=== PATIENT | male | born 1990 | race Two or more races ===

== ENCOUNTER 2020-10-15 14:12 | Outpatient (REF) | payer OTHER, SELFPAY ==
[2020-10-15 16:39] LABS: MANUAL DIFF FLAG NO
[2020-10-15 16:40] LABS: Basophils Percent Auto 0.3 % (0-2); Eosinophils Absolute Auto 0.1 X10*3/uL (0.0-0.4); Eosinophils Percent Auto 2.3 % (0-4); Hematocrit 38.3 % (42-52); Hemoglobin 13.4 g/dl (14.0-18.0); Imm Gran Abs Auto 0.01 X10*3/uL (0.00-0.03); Imm Gran Pct Auto 0.2 % (0.0-0.4); Lymphocytes Absolute Auto 2.2 X10*3/uL (1.2-4.9); Lymphocytes Percent Auto 35.1 % (20-40); Mean Corpuscular Hemoglobin 31.4 pg (27.0-33.0); Mean Corpuscular Volume 89.7 fL (80-98); Mean Platelet Volume 11.1 fL (9.4-12.4); Monocytes Absolute Auto 0.5 X10*3/uL (0.1-1.2); Monocytes Percent Auto 7.9 % (2-11); Neutrophils Absolute Auto 3.4 X10*3/uL (2.0-8.3); Neutrophils Percent Auto 54.2 % (45-73); Platelet Count 219 X10*3/uL (160-400); Red Blood Count 4.27 X10*6/uL (4.60-5.80); Red Cell Distribution Width 12.4 % (11.0-16.0); White Blood Count 6.2 X10*3/uL (4.8-10.8)
[2020-10-15 16:58] LABS: Alanine Aminotransferase 23 U/L (0-40); Anion Gap 12 (12-20); Aspartate Amino Transferase 34 U/L (5-37); Blood Urea Nitrogen 11 mg/dL (9-16); Calcium 9.1 mg/dL (8.4-10.2); Carbon Dioxide 26 mmol/L (22-29); Chloride 105 mmol/L (96-108); Cholesterol 182 mg/dL; Estimated Glomerular Filt Rate > 60; Glucose Fasting 86 mg/dL (60-99); HDL Cholesterol 37 mg/dL; LDL Cholesterol Calculated 121 mg/dl; Sodium 139 mmol/L (135-145); Triglycerides 124 mg/dL
[2020-10-16 08:04] LABS: HBS Num1 0.24 mIU/mL (0-7.99); HBc Num1 0.11 S/CO (0.00-0.79); Hepatitis B Core Antibody Nonreactive (Nonreactive); ~HepC Num1 0.38 S/CO (0.00-0.79); ~Hepatitis B Surface Antibody NONREACTIVE (Nonreactive); ~Hepatitis C Antibody Nonreactive (Nonreactive)
[2020-10-16 08:27] LABS: HBsAGNum1 0.19 S/CO (0.00-0.99); HIV AB/AG Nonreactive (Nonreactive); HIV Num 1 0.05 S/CO (0.00-0.99); Hepatitis B Surface Antigen Negative (Negative)
[2020-10-16 09:48] LABS: CT PCR NOT DETECTED (Not Detect.); NG PCR NOT DETECTED (Not Detect.)
== END 2020-10-15 14:13 | disposition home or self-care (01) ==
LOC: HO.HMGCLDS 14:12
PROVIDERS: PCP Internal Medicine; Visit Provider Internal Medicine
DX: Z00.00 Encounter for general adult medical examination without abnormal findings (principal); L98.9 Disorder of the skin and subcutaneous tissue, unspecified; I10 Essential (primary) hypertension; Z11.3 Encounter for screening for infections with a predominantly sexual mode of transmission; Z11.8 Encounter for screening for other infectious and parasitic diseases; Z11.59 Encounter for screening for other viral diseases; Z11.4 Encounter for screening for human immunodeficiency virus [HIV]; Z13.220 Encounter for screening for lipoid disorders
CPT/HCPCS: 80048; 80061; 84450; 84460; 85025; 86704; 86706; 86803; 87340; 87389; 87491; 87591

== ENCOUNTER → 2020-10-31 09:37 | Outpatient (BNVA) | payer OTHER, SELFPAY | PROVIDERS: PCP Internal Medicine; Referring Provider Internal Medicine; Visit Provider Surgery | DX: Z01.818 Encounter for other preprocedural examination (principal); L98.9 Disorder of the skin and subcutaneous tissue, unspecified | CPT/HCPCS: 99202 ==

== ENCOUNTER 2020-11-20 08:08 | Outpatient (REF) | payer OTHER, SELFPAY ==
[2020-11-20 08:12] VITALS: BMI 36.6
[2020-11-20 08:13] VITALS: BP 136/87; PULSE 90; RESP 16; TEMP 36.4; O2SAT 100
[2020-11-20 08:36] VITALS: BP 121/72; PULSE 84; RESP 16; O2SAT 99
--- NOTE | 2020-11-20 08:37 | W.PM.OPN ---
Operative Note Operative Note Date of Service: 11/20/20 Narrative: Preop diagnosis: Left thigh lesion Postop diagnosis: Left thigh lesion Procedure: Excision of left eye lesion under local anesthesia surgeon: Adalid Lee MD The patient is a 30-year-old male with a lesion on the left thigh. This measured about 3 cm in widest dimentsiion, was elevated with a narrow base. He understood the technique of excision under local anesthesia. He was aware of the risks, benefits, and alternatives. He was brought to the minor procedure room. He was placed in right lateral decubitus position to expose the area of the lesion. This area was prepped and draped. Lidocaine 1% was used for local anesthesia. I made an elliptical incision around the base of this lesion using a blade 15. It was carried down through the full-thickness of skin and part of subcutaneous layer. This entire lesion with margins of normal-appearing skin was completely excised and sent as a specimen. I undermined the edges of the incision on both sides to allow closure without tension. I closed the skin with full-thickness nylon 2 0 interrupted sutures. Dressings were applied. The patient tolerated the procedure well. There were no complications noted. Estimated blood loss about 2 cc. The patient was given wound care instructions and will be seen in the office for removal of sutures.
--- NOTE | 2020-11-20 08:41 | P.BOP_ITS ---
Brief Operative Note Date of Service: 11/20/20 Pre-op diagnosis: skin lesion left thigh Post-op diagnosis: same Procedure: exc of skin lesion left thigh Surgeon: Adalid Lee MD Anesthesia: local Was an Brush And Broom Clipper used for this Procedure?: No Estimated blood loss (mL): 2 Pathology: other (skin lesion) Condition: stable Disposition: other (home)
== END 2020-11-20 08:09 | disposition home or self-care (01) ==
LOC: HO.MS 08:08
PROVIDERS: PCP Internal Medicine; Visit Provider Surgery
PROC: (CPT 11403; principal; 2020-11-20 08:00)
DX: L98.9 Disorder of the skin and subcutaneous tissue, unspecified (principal)
CPT/HCPCS: 11403; 88305; 88341; 88342

== ENCOUNTER 2022-07-31 09:00 | Outpatient (REF) | payer OTHER, SELFPAY | END 2022-07-31 09:01 | disposition home or self-care (01) | LOC: HO.XRAY 09:00 | PROVIDERS: PCP Internal Medicine; Visit Provider Internal Medicine | DX: Z13.89 Encounter for screening for other disorder (principal) ==

== ENCOUNTER 2023-06-18 11:52 | Outpatient (AMB) | payer OTHER, SELFPAY ==
--- NOTE | 2023-06-18 12:00 | MHC.OFFWIV ---
Intake Vital Signs 06/18/23 12:03 Height 6 ft 2 in Weight 103.873 kg BMI 29.4 BP 110/72 Blood Pressure Location Lt brachial Position Sitting Pulse 98 Pulse Source Pulse Oximeter Temp 98.6 F Temp Source Oral Pulse Oximetry (%) 97 Oxygen Delivery Method Room Air Intake Visit Reasons: EP LFT possible ACL tear Intake Note: Pt is here today c/o pain from Lt buttocks down to Lt leg Patient Tobacco Use Status: Former Tobacco user Allergies sertraline Adverse Reaction (Verified 06/18/23 12:03) Agitated Do you need a note to return to daycare/school/sports/work: Yes HPI HPI Comments History of Present Illness Details 33-year-old male history of anxiety presents with concerns atraumatic left-sided knee pain that radiates up into his buttocks and down his leg, patient reports he has a history of an ACL issue and he is worried this might be flaring up he reports he does a lot of walking during a given day. He reports pain has been acutely worsening over the past few days denies blunt trauma. Denies numbness and tingling, fevers, chills. No chest pain, shortness of breath. Denies recent travel, smoking his history, malignancy, history of DVT or PE. No reported hypercoagulable disorders Physical examination with full range of motion to bilateral knees however slight discomfort with range of motion of left knee. Negative varus, varus, anterior, posterior drawer, negative Barber sign. Patient ambulatory with steady gait and slight limp favoring his right side. Normal sensation distally. 2+ anterior tibialis posterior tibialis, popliteal pulses equal bilateral History and physical exam concerning for possible ligamentous or tendon injury versus sprain or strain. Unlikely fracture, dislocation, neurovascular compromise, threat to limb. History and physical exam without edema, no significant risk factors for DVT, on likely DVT or arterial occlusion. Plan Toradol, imaging, ortho referral. Educated patient on diagnosis and treatment plan, answered all question, patient verbalizes understanding. At this time patient will be discharged home, advised to return with new or worsening symptoms. Educated on worrisome signs and symptoms and when to return. At this time I feel comfortable discharge home. Patient in knee immobilizer from home. [facility] Medical History Gassiness Chronic heartburn Anemia Generalized anxiety disorder with panic attacks Skin lesion of left leg Surgical History No pertinent past surgical history Family History Father HTN (hypertension) Mother CVD (cardiovascular disease) Stroke Mental health disorder Brother No problems noted. Brother No problems noted. Sister Mental health disorder Maternal Aunt Mental health disorder Social History Housing: House Alcohol intake: never Patient Tobacco Use Status: Former Tobacco user e-Cigarette/Vaping Use: Never Used Current occupational status: employed Cognitive needs: No Hearing needs: No Vision needs: Yes Review of Systems Const Details: Constitutional : No Weight loss, No Fever, No Chills, No Fatigue, No Malaise ENT/Mouth : No sore throat, No Rhinorrhea Eyes: No Eye Pain, No Swelling, No Redness Cardiovascular : No Chest Pain, No SOB, No Dyspnea on Exertion, No Orthopnea, No Edema, No Palpitations Respiratory : No Cough, No Sputum, No Wheezing Gastrointestinal : No Nausea, No Vomiting, No Diarrhea, No Constipation, No abdominal Pain, No Hematochezia, No Melena Genitourinary : No Dysuria, No Urinary Frequency, No Hematuria, Musculoskeletal : + joint pain, No Myalgias, No Joint Swelling Skin : No Skin Lesions, No rash Neuro : No Weakness, No Numbness, No Dizziness, No Headache Psych : No Anxiety/Panic, No Depression All other systems reviewed and are negative All systems reviewed & are unremarkable except as noted in HPI and below Physical Exam Vital Signs: Last Vital Signs Temp 98.6 F 06/18/23 12:03 Pulse 98 06/18/23 12:03 BP 110/72 06/18/23 12:03 Pulse Ox 97 06/18/23 12:03 Oxygen Delivery Method Room Air 06/18/23 12:03 BMI result Body Mass Index 29.4 vss Appearance: Alert.? Oriented X3.? No acute distress.? Head: Normocephalic, atraumatic, no step-offs or deformities Eyes: Pupils equal, round and reactive to light.? CVS:Pulses normal.?RRR Respiratory: No respiratory distress.?CTA Abdomen: Soft and nontender.? Skin: Skin warm and dry.? Normal skin color.? Normal skin turgor.? Extremities: No lower extremity edema.? No calf ttp. 5/5 strength to bilateral upper and lower extremities full range of motion to bilateral knees however slight discomfort with range of motion of left knee. Negative varus, varus, anterior, posterior drawer, negative Barber sign. Patient ambulatory with steady gait and slight limp favoring his right side. Normal sensation distally. 2+ anterior tibialis posterior tibialis, popliteal pulses equal bilateral Neuro: Oriented X 3.? No motor deficit.? No sensory deficit. CN 2-12 intact Assessment & Plan Assessment & Plan (1) Left knee pain: Code(s): M25.562 - Pain in left knee Plan Take your medications as prescribed. If you were prescribed antibiotics today, it is important that you take your medication to their entirety, do not skip any doses, do not finish them early. Follow-up with your primary care provider this week. Return to the emergency department with new or worsening symptoms. Such as fevers, chills, chest pain, shortness of breath, nausea, vomiting, dizziness, headache, vision changes, lethargy In case of emergency call 911 Orders: Orders XR knee LT 2V Today M25.562 - Pain in left knee AMB Ketorolac Injection Today M25.562 - Pain in left knee Referrals Orthopedics Referral M25.562 - Pain in left knee Orthopedics Referral M25.562 - Pain in left knee Medications: New ketorolac 30 mg IM ONCE 1 mL 0RF M25.562 - Pain in left knee ketorolac 10 mg PO Q8H PRN 15 tabs 0RF pain Coding Level of Care Code Est Pt Level 3 (57761) Diagnoses Left knee pain M25.562
[2023-06-18 12:03] VITALS: BP 110/72; PULSE 98; TEMP 37; O2SAT 97; BMI 29.4
== END 2023-06-18 12:40 | disposition home or self-care (01) ==
PROVIDERS: PCP Internal Medicine; Visit Provider Physician Assistant
DX: M25.562 Pain in left knee (principal)
CPT/HCPCS: 96372; 99213; J1885

== ENCOUNTER 2023-06-26 13:43 | Outpatient (AMB) | payer OTHER, SELFPAY ==
[2023-06-26 13:54] VITALS: BP 112/74; PULSE 97; TEMP 36.7; O2SAT 98; BMI 29.4
--- NOTE | 2023-06-26 13:54 | AM.OFFWIN_ITS ---
Intake Vital Signs 06/26/23 13:54 Height 6 ft 2 in Weight 229 lb BMI 29.4 BP 112/74 Blood Pressure Location Lt brachial Position Sitting Pulse 97 Pulse Source Pulse Oximeter Temp 98.0 F Temp Source Temporal Artery Scan Pulse Oximetry (%) 98 Intake Visit Reasons: EP [place] Note extension for LFT leg issue Intake Note: pt is here for work note due to no pain relief Patient Tobacco Use Status: Former Tobacco user Allergies sertraline Adverse Reaction (Verified 06/26/23 13:54) Agitated Do you need a note to return to daycare/school/sports/work: Yes HPI HPI Comments History of Present Illness Details This is a 33-year-old male who presented to the walk-in clinic today requesting an extension of his work note. Patient was seen at the walk-in clinic on 06/18/2023 for left knee pain that radiates up to his buttock and down into his ankle. The patient was given oral ketorolac as well as orthopedic referral at that time. He states that he does not have an orthopedic appointment until August 04, 2023 and he is still having left knee pain and he is concerned about going back to work. He states the knee pain has slightly improved. He denies any numbness/weakness/paresthesias of his extremities. [facility] Medical History Gassiness Chronic heartburn Anemia Generalized anxiety disorder with panic attacks Skin lesion of left leg Surgical History No pertinent past surgical history Family History Father HTN (hypertension) Mother CVD (cardiovascular disease) Stroke Mental health disorder Brother No problems noted. Brother No problems noted. Sister Mental health disorder Maternal Aunt Mental health disorder Social History Housing: House Alcohol intake: never Patient Tobacco Use Status: Former Tobacco user e-Cigarette/Vaping Use: Never Used Current occupational status: employed Cognitive needs: No Hearing needs: No Vision needs: Yes Review of Systems Const All systems reviewed & are unremarkable except as noted in HPI and below Reports no additional complaints Eyes Reports no additional complaints ENT Reports no additional complaints Card Reports no additional complaints Resp Reports no additional complaints GI Reports no additional complaints Reports no additional complaints Musc Reports no additional complaints Skin/Breast Reports system reviewed and no additional complaints, except as documented Neuro Reports no additional complaints Psych Reports no additional complaints Endo Reports no additional complaints Kenneth/Lymph Reports no additional complaints Aller/Immun Reports no additional complaints Physical Exam Vital Signs: Last Vital Signs Temp 98.0 F 06/26/23 13:54 Pulse 97 06/26/23 13:54 BP 112/74 06/26/23 13:54 Pulse Ox 98 06/26/23 13:54 BMI result Body Mass Index 29.4 vss Const Other: Vital signs reviewed. Constitutional: Non-toxic appearing. No acute distress. Well-developed and well-nourished. HEENT: Normocephalic and atraumatic. Skin: Warm and dry. No rashes or lesions noted. Neck: Full and painless range of motion. No cervical lymphadenopathy. Cardio: Regular rate and rhythm. No murmurs, gallops, or rubs. No lower extremity edema. No JVD. Pulmonary: No respiratory distress. No accessory muscle usage. Gastrointestinal: Soft, nontender, and nondistended in all 4 quadrants. Musculoskeletal: He has full but uncomfortable range of motion of his left knee. There is no evidence of ligamentous instability. He is ambulatory with a steady gait but he does have an antalgic gait favoring his right side. Neuro: Alert and oriented x4. Cranial nerves 2-12 grossly intact. No focal deficits appreciated. Psych: Normal mood and affect. Assessment & Plan Assessment & Plan (1) Left knee pain: Code(s): M25.562 - Pain in left knee Qualifiers: Chronicity: acute Qualified Code(s): M25.562 - Pain in left knee Plan: This is a 33-year-old male who presented to the walk-in clinic requesting extension of his work note for left knee injury/pain. The patient states he has an appointment with the orthopedic on August 04, 2023. I explained to the patient that I can not provide him a work note for the next 1 month especially because his pain is improving. He states that he has already filed paperwork with his employer and he just needs an extension of his work note for the next several days so he can have further evaluation possibly in the emergency room or guarding his left knee pain. The patient's work note was extended another 3 days until June. Was also given a refill of his oral ketorolac as he ran out of this medication. Recommended rest/activity modification, ice to the area, elevation of the extremity, and to continue with acetaminophen/ibuprofen for pain management as long as patient has no medical contraindications. Patient verbalized understanding and is agreeable with the plan. Medications: Refilled ketorolac 10 mg PO Q8H PRN 15 tabs 0RF pain Coding Level of Care Code Est Pt Level 3 (70202) Diagnoses Acute pain of left knee M25.562 Chronicity: acute
== END 2023-06-26 14:33 | disposition home or self-care (01) ==
PROVIDERS: PCP Internal Medicine; Visit Provider Physician Assistant Medical
DX: M25.562 Pain in left knee (principal)
CPT/HCPCS: 99051; 99213

== ENCOUNTER 2023-07-01 16:43 | Emergency (ER) | payer OTHER, SELFPAY ==
--- NOTE | ~2023-07-01 | US_ITS ---
EXAMINATION: US VENOUS ULTRASOUND WITH DOPPLER LOWER EXTREMITY, LEFT CLINICAL INFORMATION: Pain. COMPARISON: None available. TECHNIQUE: Ultrasound of the deep veins is performed from the hip to the calf with compression sonography and color and pulse Doppler assessment. Spectral analysis with color-flow imaging is performed. FINDINGS: There is normal venous compression and respiratory variation and augmented flow. The visualized left common femoral vein, superficial femoral vein, profunda femoral vein, popliteal vein, and the trifurcation region shows no evidence of deep venous thrombosis. There is no significant popliteal fossa cyst. If the patient's symptoms persist, followup ultrasound in 5 days 7 days might be of value to exclude proximal propagation from a non-visualized calf vein. US/US venous duplex LE LT IMPRESSION: No DVT demonstrated in the left lower extremity.
[2023-07-01 17:40] VITALS: BP 122/84; PULSE 86; RESP 18; TEMP 36.9; O2SAT 100; BMI 30.6
--- OUTSIDE RECORDS SUMMARY | 2023-07-01 17:54 | XMS_ITS | Continuity of Care Document ---
Author Name Unknown Organization [facility] Address [address] [place] [id number] Care Team Providers Care Business Practices Supervisor Name Role Phone Not on Staff, PCP Primary Care Physician Unavail able Encounter [facility] [place] Date(s): 06/30/23 - 06/30/[address] [address]- Discharge Disposition: A-D/C Walkout Attending Physician: Not on Staff, Attending MD Admitting Physician: Not on Staff, Admitting MD Referring Physician: Not on Staff, Referring MD Allergies, Adverse Reactions, Alerts No Known Allergies Problem List Condition Confirmation Course Effective Dates Status Health St at[facility] Informant Severe obesity Confirmed Active Vital Signs Most recent to oldest [Reference Range]: 1 Height 188 cm (06/30/23 7:35 PM) Weight 238 kg (06/30/23 7:35 PM) Oxygen Saturation [94-100 %] 100 % (06/30/23 7:35 PM) Pulse Rate [55-90 bpm] 98 bpm *H* (06/30/23 7:35 PM) Body Mass Index [18.5-24.99 kg/m2] 67.34 kg/m2 *>HHI* (06/30/23 7:35 PM) Blood Pressure [90-138/55-84 mm Hg] 133/ 90mm Hg (06/30/23 7:35 PM) Respiratory Rate [16-30 br/min] 20 br/mi n (06/30/23 7:35 PM) Temperature [96.8-100.4 DegF] 98.3 DegF (06/30/23 7:35 PM) Mode of Delivery (Oxygen) Room air (06/30/23 7:35 PM) Blood pressure sites Arm, left (06/30/23 7:35 PM) Temperature Route Oral (06/30/23 7:35 PM) Dry Weight 108 kg (06/30/23 7:35 PM) Patient Care team information Care Team Personnel Name: Not on Staff, PCP Position: S Physician (General Medicine) Member Role: PCP Care Team Related Persons Name: LEONARDO GONZALEZ Address: home [address] [place] [id number]
[2023-07-01 19:12] VITALS: BP 128/79; PULSE 75; RESP 15; TEMP 36.3; O2SAT 98
--- NOTE | 2023-07-01 19:59 | ED.GENADULT ---
HPI - General Adult General Chief complaint: Extremity Injury, Lower Stated complaint: left leg pain Time Seen by Provider: 07/01/23 18:23 Source: patient and RN notes reviewed Mode of arrival: ambulatory Limitations: no limitations History of Present Illness HPI narrative: 33 year old male with a past medical history of anemia and GERD presents to the emergency department with a chief complaint of left leg pain. Pt admits that he was playing basketball last month and has felt pain in his left posterior thigh and left posterior calf the day after playing basketball. This pain has been ongoing for about 1 month. He explains that he is uncomfortable lying on his left side and it is also uncomfortable to sit in a chair. The patient admits that he saw his PCP who prescribed ketorolac with no releif. Pt also admits to utilizing ice and heat without relief. PCP referred pt to orthopedics, he is not able to get in until August 03. Today he admits to worsening pain in the left posterior thigh and posterior calf. Onset (ago): month(s) Location: left and lower extremity Radiation: non-radiation Severity: mild Quality: dull and constant Pain Consistency: intermittent Relieving factors: rest Exacerbating factors: movement Associated symptoms: denies other symptoms Treatments prior to arrival: NSAID, cold therapy and heat therapy Related Data Home Medications Medication Instructions Recorded Confirmed lorazepam 0.5 mg tablet mg PO 06/26/23 Previous Rx's Medication Instructions Recorded buspirone 10 mg tablet 10 mg PO TID #90 tabs 07/03/22 pantoprazole 40 mg tablet,delayed 40 mg PO DAILY #30 tabs 09/07/22 release ketorolac 10 mg tablet 10 mg PO Q8H PRN pain #15 tabs 06/26/23 Allergies Allergy/AdvReac Type Severity Reaction Status Date / Time sertraline AdvReac Agitated Verified 06/26/23 13:54 Review of Systems Constitutional: Constitutional: Reports as per HPI Musculoskeletal: Musculoskeletal: Reports no additional musculoskeletal complaints, Denies back pain and Denies muscle weakness [facility] Past Medical History Medical History Gassiness Chronic heartburn Anemia Generalized anxiety disorder with panic attacks Skin lesion of left leg Surgical History No pertinent past surgical history Family History Family History Father HTN (hypertension) Mother CVD (cardiovascular disease) Stroke Mental health disorder Brother No problems noted. Brother No problems noted. Sister Mental health disorder Maternal Aunt Mental health disorder Social History Social History Housing: House Alcohol intake: never Patient Tobacco Use Status: Former Tobacco user e-Cigarette/Vaping Use: Never Used Advance Directives: No Advance Directives Information Provided: No Current occupational status: employed Cognitive needs: No Hearing needs: No Vision needs: Yes Physical Exam ED Vital Signs: Vital Signs - 24 hr 07/01/23 17:40 07/01/23 19:12 Temperature 98.4 F 97.3 F Pulse Rate 86 75 Respiratory Rate 18 15 Blood Pressure 122/84 128/79 Pulse Oximetry 100 98 Oxygen Delivery Method Room Air BMI result Body Mass Index 30.6 Const General: cooperative, healthy appearing, no acute distress and well developed Extrem Other: MSK: - Solares Test in the left leg + Straight Leg raise in the left leg - Straight Leg raise in the right leg General: Yes full ROM and Yes no calf tenderness Right lower extremity: normal to inspection, full ROM and hip/thigh Details: normal to inspection Left lower extremity: normal to inspection, full ROM and hip/thigh Details: normal to inspection Medical Decision Making Medical Decision Making MDM Narrative: 33-year-old male presents for evaluation of left leg pain. His pain started the day after playing basketball. History exam is most consistent musculoskeletal origin of his pain. He has no muscle weakness, no back pain to suggest radicular cause of his pain. An ultrasound was ordered to rule out DVT which was negative. There are no skin changes or rashes to suggest cellulitis or infectious cause. Discharge the patient with cyclobenzaprine. The patient is not a diabetic, we will still trial a couple of days of dexamethasone to see if helps his pain and he will follow-up with orthopedics Differential Diagnosis Differential Diagnoses: The differential diagnosis associated with the presentation includes Lumbar Radiculopathy Left Calf Muscle Strain Bakers Cyst Sciatica DVT Radiology Impression Discussion of test interpretation with radiology: I have reviewed the radiologist's reading. Radiologist Impression: US shows no evidence of Bakers Cyst or DVT Discharge Plan Discharge Clinical Impression: Left leg pain Patient Disposition: Home, Self-Care Instructions: Leg Pain (ED) Additional Instructions: Your ultrasound did not show any evidence of blood clots or Coffman's cyst. Your pain is most likely musculoskeletal in origin Take cyclobenzaprine up to 3 times daily as needed for muscle pain You may try dexamethasone twice daily for 3 days to decrease inflammation Use warm compresses or ice, whichever is more comfortable Follow-up with orthopedics as planned Prescriptions: No Action pantoprazole 40 mg tablet,delayed release (DR/EC) 40 mg PO DAILY Qty: 30 1RF Rx Instructions: Take 1 hour before a meal buspirone 10 mg tablet 10 mg PO TID Qty: 90 1RF lorazepam 0.5 mg tablet PO ketorolac 10 mg tablet 10 mg PO Q8H PRN (Reason: pain) Qty: 15 0RF
== END 2023-07-01 20:30 | disposition home or self-care (01) ==
PROVIDERS: Emergency Provider Internal Medicine; PCP Internal Medicine
DX: M79.605 Pain in left leg (principal); R60.0 Localized edema
CPT/HCPCS: 93971; 99282; 99284

== ENCOUNTER 2023-07-07 10:48 | Outpatient (AMB) | payer OTHER, SELFPAY ==
--- NOTE | 2023-07-07 10:51 | A.OFFVIS_ITS ---
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 Patient states he was playing basketball a couple months ago and felt pain in his left thigh and calf the day after playing basketball. This pain has been ongoing since he was seen at the ED on 07/01/23. He explains that it is uncomfortable lying on his left side and sitting in a chair. Patient reports that he saw his PCP who prescribed him ketorolac which gives him no relief. Pt also admits to utilizing ice and heat without relief. He states that his pain is worse when putting weight on the left knee. Allergies sertraline Adverse Reaction (Verified 07/07/23 10:54) Agitated HPI USABILITY ENGINEER-Left knee pain/left leg pain/ Confirmed HPI Details 33-year-old male who presents in the off ice today, as a new patient, for an evaluation of left lower extremity pain. The patient presented to the Walk-In clinic on 06/18/2023 status post atraumatic left-sided knee pain that radiates up into his buttocks and down his leg. X-rays of the left knee were obtained. He was given a knee immobilizer. He was also given an out of work note. He was prescribed Ketorolac 10 mg PO Q8H PRN with 15 tablets. The patient returned to the Walk-In clinic on 06/26/2023 where he requested an extension to his out of work note for a few more days and a refill of his Ketorolac prescription. These were supplied to the patient. The patient presented to the ED on 07/01/2023, per the ED note, where he reported he had been playing basketball in 05/2023 and felt pain in his left posterior thigh and left posterior calf the day after playing basketball. He explains that he is uncomfortable lying on his left side and it is also uncomfortable to sit in a chair. An ultrasound was obtained. He was prescribed Dexamethasone 4 mg PO BID. While in the office today the patient reports he was playing basketball a couple of months ago and felt pain in his left thigh and calf the next day. He states this pain has been ongoing since this event occurred. He confirms being seen in the ED on 07/01/2023. He states he is uncomfortable laying on his left side or sitting in a chair. He reports being seen by his PCP who prescribed him Ketorolac which gave him no relief. He confirms the use of ice and heat with no relief. He also reports increased pain when weight is applied to the left lower extremity. COUNTS INCLUDE 234 BEDS AT THE [facility] Medical History Gassiness Chronic heartburn Anemia Generalized anxiety disorder with panic attacks Skin lesion of left leg Surgical History No pertinent past surgical history Family History Father HTN (hypertension) Mother CVD (cardiovascular disease) Stroke Mental health disorder Brother No problems noted. Brother No problems noted. Sister Mental health disorder Maternal Aunt Mental health disorder Social History Housing: House Alcohol intake: never Patient Tobacco Use Status: Former Tobacco user e-Cigarette/Vaping Use: Never Used Current occupational status: employed Cognitive needs: No Hearing needs: No Vision needs: Yes Review of Systems Const All systems reviewed & are unremarkable except as noted in HPI and below Physical Exam Const General: cooperative and no acute distress Orientation/consciousness: patient oriented x3 Resp Effort & Inspection: normal respiratory effort and able to speak in complete sentences Cardio Peripheral pulses: Peripheral pulses 2+ throughout Skin General skin exam: no rashes or lesions noted Neuro General: patient oriented x3 Extrem Other: Left hip: Normal to inspection. No ecchymosis, erythema, or edema. Full hip ROM in all planes. No tenderness to palpation over the greater trochanteric bursa. 5/5 strength with resisted hip flexion, knee extension, abduction, and abduction. Able to perform straight leg raise. NVI. Left knee: Normal to inspection. No ecchymosis, erythema, or joint effusion. No tenderness to palpation to the medial or lateral joint lines. Full knee extension and flexion. Negative Eyal's. Negative anterior drawer. NVI. Patient reports pain in the glute, hamstring, and gastroc area. Assessment & Plan Assessment & Plan (1) Strain of left gastrocnemius muscle or tendon: Code(s): S86.112A - Strain of other muscle(s) and tendon(s) of posterior muscle group at lower leg level, left leg, initial encounter (2) Strain of left hamstring: Code(s): S76.312A - Strain of muscle, fascia and tendon of the posterior muscle group at thigh level, left thigh, initial encounter Qualifiers: Encounter type: initial encounter Qualified Code(s): S76.312A - Strain of muscle, fascia and tendon of the posterior muscle group at thigh level, left thigh, initial encounter Plan Mr. Saleem is a 33-year-old male who presents in the office today, as a new patient, for an evaluation of left lower extremity pain. The patient presented to the Walk-In clinic on 06/18/2023 status post atraumatic left-sided knee pain that radiates up into his buttocks and down his leg. X-rays of the left knee were obtained. He was given a knee immobilizer. He was also given an out of work note. He was prescribed Ketorolac 10 mg PO Q8H PRN with 15 tablets. The patient returned to the Walk-In clinic on 06/26/2023 where he requested an extension to his out of work note for a few more days and a refill of his Ketorolac prescription. These were supplied to the patient. The patient presented to the ED on 07/01/2023, per the ED note, where he reported he had been playing basketball in 05/2023 and felt pain in his left posterior thigh and left posterior calf the day after playing basketball. He explains that he is uncomfortable lying on his left side and it is also uncomfortable to sit in a chair. An ultrasound was obtained. He was prescribed Dexamethasone 4 mg PO BID.. A referral for the patient to attend physical therapy has been placed today. He will remain out of work until his follow up. Follow up will be in 6 weeks, or sooner if needed. Ultrasound of the left lower extremity, obtained on 07/01/2023, revealed: No DVT demonstrated in the left lower extremity. Orders: Orders PT Evaluation and Treatment Today S76.312A - Strain of muscle, fascia and tendon of the posterior muscle group at thigh level, left thigh, initial encounter, S86.112A - Strain of other muscle(s) and tendon(s) of posterior muscle group at lower leg level, left leg, initial encounter Patient Instructions: Scribed by Char Rowley, medical dosimetrist, for Kylie Kaden AUGUSTIN on 07/07/2023 at 10:53 am, EST. Coding Level of Care Code New Pt Level 4 (53318) Diagnoses Strain of left gastrocnemius muscle or tendon S86.112A Strain of left hamstring, initial encounter S76.312A Encounter type: initial encounter
== END 2023-07-07 11:15 | disposition home or self-care (01) ==
PROVIDERS: PCP Internal Medicine; Visit Provider Physician Assistant
DX: S86.112A Strain of other muscle(s) and tendon(s) of posterior muscle group at lower leg level, left leg, initial encounter (principal); S76.312A Strain of muscle, fascia and tendon of the posterior muscle group at thigh level, left thigh, initial encounter
CPT/HCPCS: 99203

== ENCOUNTER → 2023-07-07 10:48 | Outpatient (BNVA) | payer OTHER, SELFPAY | PROVIDERS: PCP Internal Medicine; Visit Provider Physician Assistant | DX: S86.112A Strain of other muscle(s) and tendon(s) of posterior muscle group at lower leg level, left leg, initial encounter (principal); S76.312A Strain of muscle, fascia and tendon of the posterior muscle group at thigh level, left thigh, initial encounter | CPT/HCPCS: 99202 ==

== ENCOUNTER 2023-08-05 13:00 | Outpatient (RCR) | payer OTHER, SELFPAY ==
--- NOTE | 2023-07-14 14:06 | MHC.PT.EP ---
[facility] [place] Office [place] Office [place] Office [address] [phone] F: [phone] F: [phone] F: [phone] F: [phone] Physical Therapy Plan of Care Date of Evaluation: 07/14/23 Date of Surgery: Diagnosis: strain of L hamstring. Assessment: Patient is a 33 year old R handed male who presents with s/s consistent with L hamstring strain, pain. 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 Patient past medical history includes anxiety. Current impairments include pain, balance, flexibility, ROM, strength, activity tolerance and functional mobility. Functional limitations include decreased ability to walk, stand, squat, jog, negotiate stairs, lift, carry, push, pull and participate in recreational activities. Patient is motivated with good rehab potential. Skilled PT will address impairments and functional limitations in order to achieve goals. Frequency and Duration: The patient will be seen 2x/week for 5 weeks Short Term Goals: I with HEP - 2 weeks normal flexibility in L gastroc/soleus and HS - 3 weeks Normal/symmetrical gait mechanics - 3 weeks Correction Goals: Restore PLOF pain free - 5 weeks LEFS 60/80 - 5 weeks pain free weight bearing in L LE - 4 weeks Treatment Plan: Modalities to reduce pain, spasms and effusion. Manual therapy to restore motion and function. Therapeutic exercise to improve strength and flexibility. Neuromuscular re-education for posture and balance. Therapeutic activities to return to functional activities of daily living. Electronically signed by: Clay Jensen, PT Please sign and return to therapist. Thank you for your referral.
--- NOTE | 2024-02-29 14:18 | MHC.PT.DC ---
[facility] [place] [facility] [place] [facility] [place] [facility] [address] [phone] F: [phone] F: [phone] F: [phone] F: [phone] Physical Therapy Discharge Report Diagnosis: strain of L hamstring. Date of Surgery: Date of Evaluation: 07/14/23 Date of Discharge: 09/02/23 Treatments to Date: 3 Cancellations to Date: No Shows to Date: Discharge Status: Patient Elected to Stop Discharge Summary: 08/05/23: peculiar presentation of s/s and coping have made it challenging to know how to best treat and progress, as has spotty attendance. I did educate him on consistency with PT. His s/s seem tough to pin down but his reaction to s/s is significant when he does have it. He amb in clinic today with no limp at one point, and then extremely painful with very low impact intervention. 07/16/23: difficulty knowing if pt is magnifying or has limited coping skills with discomfort. i educated him thoroughly on importance of gentle, pain free stretching. apparently the patient did not grasp this from the first several times i explained this to him pertaining to his stretching HEP. He seemed to grasp this a bit better at the conclusion of the appt. Patient is a 33 year old R handed male who presents with s/s consistent with L hamstring strain, pain. 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 Patient past medical history includes anxiety. Current impairments include pain, balance, flexibility, ROM, strength, activity tolerance and functional mobility. Functional limitations include decreased ability to walk, stand, squat, jog, negotiate stairs, lift, carry, push, pull and participate in recreational activities. Patient is motivated with good rehab potential. Skilled PT will address impairments and functional limitations in order to achieve goals. Electronically signed by: Clay Jensen, PT Please sign and return to therapist. Thank you for your referral.
== END 2024-02-29 14:19 | disposition home or self-care (01) ==
LOC: HO.PTCHIC 13:00
PROVIDERS: PCP Internal Medicine; Visit Provider Physician Assistant
DX: S76.312A Strain of muscle, fascia and tendon of the posterior muscle group at thigh level, left thigh, initial encounter (principal); S86.112A Strain of other muscle(s) and tendon(s) of posterior muscle group at lower leg level, left leg, initial encounter
CPT/HCPCS: 97110; 97161

== ENCOUNTER 2023-08-10 10:32 | Outpatient (AMB) | payer OTHER, SELFPAY ==
--- NOTE | 2023-08-10 10:35 | MHC.OFFVIS ---
Intake Vital Signs 08/10/23 10:41 Height 6 ft 2 in Weight 238 lb BMI 30.6 Intake Visit Reasons: OV - LT Knee pain, PT aggravated pain, per TM Intake Note: Jens is a 33 year old male who presents today as a patient for a follow up of his strain of left gastrocnemius muscle/tendon. Patient states his pain is getting a bit worse and his pain is radiating up to his buttocks. He states that P.T. is making his pain worse. Pain is taking over is whole leg which is limiting him to do his daily activates. Allergies sertraline Adverse Reaction (Verified 08/10/23 10:39) Agitated HPI OV - LT Knee pain, PT aggravated pain, per TM HPI Details 33-year-old male who presents in the office today for a follow up of left knee pain. I last saw the patient in the office on 07/07/2023 when he was referred to physical therapy and he was to remain out of work until his follow up. While in the office today the patient reports his pain is a bit worse and it radiates up to his buttocks. He confirms attending physical therapy but states this also made his pain worse. He reports pain through out the left lower extremity and states it is limiting him from doing his daily activities. [facility] Medical History Gassiness Chronic heartburn Anemia Generalized anxiety disorder with panic attacks Skin lesion of left leg Surgical History No pertinent past surgical history Family History Father HTN (hypertension) Mother CVD (cardiovascular disease) Stroke Mental health disorder Brother No problems noted. Brother No problems noted. Sister Mental health disorder Maternal Aunt Mental health disorder Social History (Updated 08/10/23 @ 10:40 by Clemente Mi) Housing: House Alcohol intake: never Patient Tobacco Use Status: Former Tobacco user e-Cigarette/Vaping Use: Never Used Current occupational status: employed Current occupation: Mental Health Counselor Cognitive needs: No Hearing needs: No Vision needs: Yes Review of Systems Const All systems reviewed & are unremarkable except as noted in HPI and below Physical Exam Vital Signs: BMI result Body Mass Index 30.6 Const General: cooperative, healthy appearing and no acute distress Orientation/consciousness: patient oriented x3 Resp Effort & Inspection: normal respiratory effort and able to speak in complete sentences Cardio Rate: regular rate Peripheral pulses: Peripheral pulses 2+ throughout GI Palpation (GI): Soft to palpation Skin General skin exam: no rashes or lesions noted Lesions: no lesions Rashes: no rashes Neuro General: patient oriented x3 Extrem Other: Left hip: Normal to inspection. No ecchymosis, erythema, or edema. Full hip ROM in all planes. No tenderness to palpation over the greater trochanteric bursa. 5/5 strength with resisted hip flexion, knee extension, abduction, and abduction. Pain radiating from buttock to calf with straight leg raise. NVI. Left knee: Normal to inspection. No ecchymosis, erythema, or joint effusion. No tenderness to palpation to the medial or lateral joint lines. Full knee extension and flexion. Negative Eyal's. Negative anterior drawer. NVI. Patient reports pain in the glute, hamstring, and gastroc area. Assessment & Plan Assessment & Plan (1) Lumbar radiculopathy: Code(s): M54.16 - Radiculopathy, lumbar region Plan Mr. Saleem is a 33-year-old male who presents in the office today for a follow up of left knee pain. I last saw the patient in the office on 07/07/2023 when he was referred to physical therapy and he was to remain out of work until his follow up. While in the office today the patient reports his pain is a bit worse and it radiates up to his buttocks. He confirms attending physical therapy but states this also made his pain worse. He reports pain through out the left lower extremity and states it is limiting him from doing his daily activities. Patient reports that physical therapy has exacerbated his symptoms and reports that his pain begins in the buttocks region and radiates down to the ankle. He denies any numbness and tingling. At this time, I recommend that he stop attending physical therapy until he is evaluated by Physiatry. I recommend for the patient to use an anti-inflammatory or Tylenol for pain relief. He is also able to apply ice and heat alternating on his lower back. Follow up with be with Physiatry, or sooner if needed. Patient Instructions: Scribed by Char Rowley medical biller, for Kylie Alfonso PA-C on 08/10/2023 at 10:38 am, EST. Coding Level of Care Code Est Pt Level 3 (84924) Diagnoses Lumbar radiculopathy M54.16
[2023-08-10 10:41] VITALS: BMI 30.6
== END 2023-08-10 10:59 | disposition home or self-care (01) ==
PROVIDERS: PCP Internal Medicine; Visit Provider Physician Assistant
DX: M54.16 Radiculopathy, lumbar region (principal)
CPT/HCPCS: 99213

== ENCOUNTER → 2023-08-10 10:32 | Outpatient (BNVA) | payer OTHER, SELFPAY | PROVIDERS: PCP Internal Medicine; Visit Provider Physician Assistant | DX: M54.16 Radiculopathy, lumbar region (principal) | CPT/HCPCS: 99212 ==

== ENCOUNTER 2023-08-25 11:22 | Outpatient (REF) | payer OTHER, SELFPAY ==
--- NOTE | ~2023-08-25 | XR_ITS ---
EXAMINATION: XR LUMBOSACRAL SPINE CLINICAL INFORMATION: Dorsalgia. COMPARISON: Radiographs dated 09/15/2019. TECHNIQUE: AP and lateral views of the lumbar spine and lateral view of the lumbosacral junction. FINDINGS: Vertebral body heights are normal. There is a mild lumbar rotatory levoscoliosis. The lower thoracic and lumbar disc spaces are well-maintained. No acute fracture or spondylolisthesis is seen. There is anterior arthropathy of the T12 upper and lower endplates. There is mild blunting of the anterior margin of the L4 upper endplate. The posterior elements are intact. The paravertebral soft tissues are unremarkable. XR/XR lumbar spine 2-3V IMPRESSION: 1. There is a mild lumbar rotatory levoscoliosis. 2. The lower thoracic and lumbar disc spaces are well-maintained. 3. There are T12 and L4 endplate degenerative changes.
--- NOTE | ~2023-08-25 | XR_ITS ---
EXAMINATION: X-ray bilateral hips CLINICAL INFORMATION: Pain COMPARISON: None TECHNIQUE: 2 views. Left hip 2 views. FINDINGS: Right hip: No acute fracture or dislocation. Joint space is maintained. No abnormal soft tissue calcification. No suspicious soft tissue findings. Left hip: No acute fracture or dislocation. Joint space is maintained. Question lateral acetabular subchondral cysts. No abnormal soft tissue calcification. No suspicious soft tissue findings. XR/XR hip LT min 2V IMPRESSION: No evidence of acute osseous abnormality. Possible mild degenerative changes in the left hip lateral acetabulum.
--- NOTE | ~2023-08-25 | XR_ITS ---
EXAMINATION: X-ray bilateral hips CLINICAL INFORMATION: Pain COMPARISON: None TECHNIQUE: 2 views. Left hip 2 views. FINDINGS: Right hip: No acute fracture or dislocation. Joint space is maintained. No abnormal soft tissue calcification. No suspicious soft tissue findings. Left hip: No acute fracture or dislocation. Joint space is maintained. Question lateral acetabular subchondral cysts. No abnormal soft tissue calcification. No suspicious soft tissue findings. XR/XR hip RT min 2V IMPRESSION: No evidence of acute osseous abnormality. Possible mild degenerative changes in the left hip lateral acetabulum.
== END 2023-08-25 11:23 | disposition home or self-care (01) ==
LOC: HO.HOSX 11:22
PROVIDERS: PCP Internal Medicine; Visit Provider Physical Medicine & Rehabilitation
DX: M54.9 Dorsalgia, unspecified (principal); M54.16 Radiculopathy, lumbar region; M25.552 Pain in left hip; M25.551 Pain in right hip; M79.18 Myalgia, other site
CPT/HCPCS: 72100; 73502; 99202; 99212

== ENCOUNTER 2023-08-25 11:22 | Outpatient (AMB) | payer OTHER, SELFPAY ==
--- NOTE | 2023-08-25 11:32 | MHC.OFFVIS ---
Intake Vital Signs 08/25/23 11:37 Height 6 ft 2 in Weight 238 lb BMI 30.6 Intake Visit Reasons: New Prob - Radiculopathy Intake Note: Jens is a 33 year old male who presents today as a patient for a follow up of his left lumbar radiculopathy. Patient states that his pain has gotten a bit better when he stopped going to PT. He found relief when he takes Tylenol and when he gets a massage. Allergies sertraline Adverse Reaction (Verified 08/10/23 10:39) Agitated Medication List - Last Reconciled 08/25/23 by Kaycee Guallpa MD buspirone 10 mg PO TID lorazepam mg PO HPI HPI Comments History of Present Illness Details Found him lying on exam table, on right side, left side is painful per patient and that position is more comfortable. 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 Walked it off. Sat down with some relief. 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 In May, there was a time he could not get up/walk from car. Eventually improved but walking always caused pain. Denies numbness. Denies weakness. Had some bowel difficulties due to pain. Denies incontinence. Treatment done so far: physical therapy - was painful, made it worse per patients muscle relaxer No imaging. [facility] Medical History Gassiness Chronic heartburn Anemia Generalized anxiety disorder with panic attacks Skin lesion of left leg Surgical History No pertinent past surgical history Family History Father HTN (hypertension) Mother CVD (cardiovascular disease) Stroke Mental health disorder Brother No problems noted. Brother No problems noted. Sister Mental health disorder Maternal Aunt Mental health disorder Social History (Updated 08/10/23 @ 10:40 by Clemente Mi) Housing: House Alcohol intake: never Patient Tobacco Use Status: Former Tobacco user e-Cigarette/Vaping Use: Never Used Current occupational status: employed Current occupation: Mental Health Counselor Cognitive needs: No Hearing needs: No Vision needs: Yes Review of Systems Const All systems reviewed & are unremarkable except as noted in HPI and below Physical Exam Vital Signs: BMI result Body Mass Index 30.6 Constitutional: Patient appears to be in no acute distress, well nourished and well developed. Patient was appropriately conversant and oriented. Good historian. MSK: No specific abnormalities found on inspection of the spine and all extremities. No pain with palpation over the lumbar area. SI joint nontender. GT nontender. ITB nontender. Indicates tenderness is along hamstrings. No signs of tear or redness or inflammation. Lumbar ROM was full. Bilateral hip, knee and ankle ROM WNL. No ligamentous laxity or crepitance. No increased effusion. Straight-leg raising test negative. FABERE test positive left buttocks pain. Gillet test is negative. Anu test is negative. Piriformis test is negative. Strength is 5/5 in all muscle groups tested. No increased tone noted. Neurological: Neurologic examination of the upper and lower extremities was nonfocal with intact sensation, muscle stretch reflexes and without focal motor deficits . Mcneil?s negative bilaterally. Babinski was down going bilaterally. Clonus was negative. Gait is non-antalgic without loss of balance. Assessment & Plan Assessment & Plan (1) Lumbar radiculopathy: Code(s): M54.16 - Radiculopathy, lumbar region (2) Left buttock pain: Code(s): M79.18 - Myalgia, other site (3) Hip pain, left: Code(s): M25.552 - Pain in left hip Plan Pain on left buttocks and posterior thigh. Tender along hamstrings which raises suspicion for hamstring tightness. No signs of tear. Positive SLR though raises concern for radiculitis. He's not had any imaging at all. Will do lumbar and hip xrays today. Start ibuprofen 800mg TID for 7 days. Take full stomach. Discussed side effects. He has been off work. Requesting work letter to be off work. May be reasonable while we do more work up. Assessment and plan discussed with patient, and patient was agreeable. All questions were answered thoroughly. Follow-up 4 weeks. Kaycee Guallpa MD, MARILEE Board Certified, [place] Board [employer] and Rehabilitation (ABPMR) Board Certified, [place] Board [employer] Electro[employer] (ABEM) Orders: Orders XR lumbar spine 2-3V Today M25.552 - Pain in left hip, M54.16 - Radiculopathy, lumbar region, M54.9 - Dorsalgia, unspecified, M79.18 - Myalgia, other site XR hip RT min 2V Today M25.552 - Pain in left hip, M54.16 - Radiculopathy, lumbar region, M79.18 - Myalgia, other site XR hip LT min 2V Today M25.552 - Pain in left hip, M54.16 - Radiculopathy, lumbar region, M79.18 - Myalgia, other site Medications: New ibuprofen 800mg every 8 hours for 7 days, with full stomach 800 mg PO Q8H 21 tabs 1RF Coding Level of Care Code New Pt Level 4 (36698) Diagnoses Lumbar radiculopathy M54.16 Left buttock pain M79.18 Hip pain, left M25.552
[2023-08-25 11:37] VITALS: BMI 30.6
== END 2023-08-25 12:09 | disposition home or self-care (01) ==
PROVIDERS: PCP Internal Medicine; Visit Provider Physical Medicine & Rehabilitation
DX: M54.16 Radiculopathy, lumbar region (principal); M79.18 Myalgia, other site; M25.552 Pain in left hip
CPT/HCPCS: 99204

== ENCOUNTER 2023-09-23 09:56 | Outpatient (AMB) | payer OTHER, SELFPAY ==
--- NOTE | 2023-09-23 10:02 | MHC.OFFVIS ---
Vital Signs 09/23/23 10:09 Height 6 ft 2 in Weight 235 lb BMI 30.2 Intake Visit Reasons: FQ-[id number]-[id number] up Intake Note: Jens is a 33 year old male who presents today for his 4 week follow up of his left lumbar radiculopathy. He reports his back is improving with a pain scale of 5/10 and he has been able to walk 0.5 miles daily which he was unable to do before. He expresses he was told his back pain was radiating down and causing his leg pain. He has his fiance massage his leg for relief. He states his biggest concern is if walking prolonged distances will cause his pain to return. Allergies sertraline Adverse Reaction (Verified 09/23/23 10:07) Agitated Medication List - Last Reconciled 09/23/23 by Kaycee Guallpa MD buspirone 10 mg PO TID ibuprofen 800 mg PO Q8H lorazepam mg PO HPI Comments Details: Injury 05/10/23, works as therapist, playing basketball with patients, as he landed on left foot, sudden pain on left buttocks/thigh. Walked it off. Sat down with some relief. 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 In May, there was a time he could not get up/walk from car. Eventually improved but walking always caused pain. Denies numbness. Denies weakness. Had some bowel difficulties due to pain. Denies incontinence. Treatment done so far: physical therapy - was painful, made it worse per patient muscle relaxer Still points to left hamstrings and calf as source of pain. He says he's overall better. Massages help. He did home exercises that we talked about. Walks 0.5 miles every other day. No groin piain. No low back pain. No numbness. [facility] Medical History Gassiness Chronic heartburn Anemia Generalized anxiety disorder with panic attacks Skin lesion of left leg Surgical History No pertinent past surgical history Family History Father HTN (hypertension) Mother CVD (cardiovascular disease) Stroke Mental health disorder Brother No problems noted. Brother No problems noted. Sister Mental health disorder Maternal Aunt Mental health disorder Social History Housing: House Alcohol intake: never Patient Tobacco Use Status: Former Tobacco user e-Cigarette/Vaping Use: Never Used Current occupational status: employed Current occupation: Mental Health Counselor Cognitive needs: No Hearing needs: No Vision needs: Yes Physical Exam Vital Signs: BMI result Body Mass Index 30.2 Constitutional: Patient appears to be in no acute distress, well nourished and well developed. Patient was appropriately conversant and oriented. Good historian. MSK: No specific abnormalities found on inspection of the spine and all extremities. No pain with palpation over the lumbar area. SI joint nontender. GT nontender. ITB nontender. Indicates tenderness is along hamstrings - no tenderness today. No signs of tear or redness or inflammation. Lumbar ROM was full. Bilateral hip, knee and ankle ROM WNL. No ligamentous laxity or crepitance. No increased effusion. Straight-leg raising test negative. FABERE test negative. Strength is 5/5 in all muscle groups tested. No increased tone noted. Neurological: Neurologic examination of the upper and lower extremities was nonfocal with intact sensation, muscle stretch reflexes and without focal motor deficits . Babinski was down going bilaterally. Clonus was negative. Gait is non-antalgic without loss of balance. Results Reviewed Results Reviewed: Ordering Physician: Kaycee Coy Date of Service: 08/25/23 Procedure(s): XR lumbar spine 2-3V Accession Number(s): [id number] cc: Omaira Romo MD; Kaycee Coy~ EXAMINATION: XR LUMBOSACRAL SPINE CLINICAL INFORMATION: Dorsalgia. COMPARISON: Radiographs dated 09/15/2019. TECHNIQUE: AP and lateral views of the lumbar spine and lateral view of the lumbosacral junction. FINDINGS: Vertebral body heights are normal. There is a mild lumbar rotatory levoscoliosis. The lower thoracic and lumbar disc spaces are well-maintained. No acute fracture or spondylolisthesis is seen. There is anterior arthropathy of the T12 upper and lower endplates. There is mild blunting of the anterior margin of the L4 upper endplate. The posterior elements are intact. The paravertebral soft tissues are unremarkable. XR/XR lumbar spine 2-3V IMPRESSION: 1. There is a mild lumbar rotatory levoscoliosis. 2. The lower thoracic and lumbar disc spaces are well-maintained. 3. There are T12 and L4 endplate degenerative changes. Ordering Physician: Kaycee Coy Date of Service: 08/25/23 Procedure(s): XR hip LT min 2V Accession Number(s): [id number] cc: Omaira Romo MD; Kaycee Coy~ EXAMINATION: X-ray bilateral hips CLINICAL INFORMATION: Pain COMPARISON: None TECHNIQUE: 2 views. Left hip 2 views. FINDINGS: Right hip: No acute fracture or dislocation. Joint space is maintained. No abnormal soft tissue calcification. No suspicious soft tissue findings. Left hip: No acute fracture or dislocation. Joint space is maintained. Question lateral acetabular subchondral cysts. No abnormal soft tissue calcification. No suspicious soft tissue findings. XR/XR hip LT min 2V IMPRESSION: No evidence of acute osseous abnormality. Possible mild degenerative changes in the left hip lateral acetabulum. Assessment & Plan Assessment & Plan (1) Strain of left hamstring: Code(s): S76.312A - Strain of muscle, fascia and tendon of the posterior muscle group at thigh level, left thigh, initial encounter Category: Medical Qualifiers: Encounter type: initial encounter Qualified Code(s): S76.312A - Strain of muscle, fascia and tendon of the posterior muscle group at thigh level, left thigh, initial encounter (2) Strain of left gastrocnemius muscle or tendon: Code(s): S86.112A - Strain of other muscle(s) and tendon(s) of posterior muscle group at lower leg level, left leg, initial encounter Category: Medical Plan Suspect left hamstring and gastrocnemius strain, which is now improving. No signs of lumbar radiculopathy or myelopathy. Improved from home exercises. He is willing to return to PT now with focus on hamstring rehab. Xrays were reassuring, discussed with patient. He is willing to return back to work 2 weeks after PT has restarted. I asked him if I can return him sooner but with restrictions, but he says job description would not allow limitations/restrictions. Assessment and plan discussed with patient, and patient was agreeable. All questions were answered thoroughly. Follow-up 3 months. Kaycee Guallpa MD, MARILEE Board Certified, [place] [employer] and Rehabilitation (ABPMR) Board Certified, [place] [employer] Electro[employer] (ABEM) Orders: Orders PT Evaluation and Treatment Today S76.312A - Strain of muscle, fascia and tendon of the posterior muscle group at thigh level, left thigh, initial encounter, S86.112A - Strain of other muscle(s) and tendon(s) of posterior muscle group at lower leg level, left leg, initial encounter Coding Level of Care Code Est Pt Level 4 (31165) Diagnoses Strain of left hamstring, initial encounter S76.312A Encounter type: initial encounter Strain of left gastrocnemius muscle or tendon S86.112A
[2023-09-23 10:09] VITALS: BMI 30.2
== END 2023-09-23 10:25 | disposition home or self-care (01) ==
PROVIDERS: PCP Internal Medicine; Visit Provider Physical Medicine & Rehabilitation
DX: S76.312A Strain of muscle, fascia and tendon of the posterior muscle group at thigh level, left thigh, initial encounter (principal); S86.112A Strain of other muscle(s) and tendon(s) of posterior muscle group at lower leg level, left leg, initial encounter
CPT/HCPCS: 99214

== ENCOUNTER → 2023-09-23 09:56 | Outpatient (BNVA) | payer OTHER, SELFPAY | PROVIDERS: PCP Internal Medicine; Visit Provider Physical Medicine & Rehabilitation | DX: S76.312A Strain of muscle, fascia and tendon of the posterior muscle group at thigh level, left thigh, initial encounter (principal); S86.112A Strain of other muscle(s) and tendon(s) of posterior muscle group at lower leg level, left leg, initial encounter | CPT/HCPCS: 99212 ==

== ENCOUNTER 2023-10-13 14:00 | Outpatient (RCR) | payer OTHER, SELFPAY ==
--- NOTE | 2023-10-06 13:50 | MHC.PT.EP ---
[facility] [place] Office [place] [facility] [place] [facility] [address] [phone] F: [phone] F: [phone] F: [phone] F: [phone] Physical Therapy Plan of Care Date of Evaluation: 10/06/23 Date of Surgery: Diagnosis: Strain of L thigh Assessment: Patient is a 33 year old R handed male who presents with s/s consistent with strain of left thigh. 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 Patient past medical history is non-contributory. Current impairments include pain, posture, ROM, strength, activity tolerance and functional mobility. Functional limitations include decreased ability to walk, stand, jog, bend, squat and lift. Patient is motivated with good rehab potential. Skilled PT will address impairments and functional limitations in order to achieve goals. Frequency and Duration: The patient will be seen 1x/week for 4 weeks Short Term Goals: I with HEP - 2 weeks 90/90 lacking 20 or less - 2 weeks Able to walk 20 minutes without increased pain - 2 weeks Custom Designer Goals: Pain free return to all activities including work - 4 weeks LEFS 80/80 - 4 weeks Gastroc flex WNL - 4 weeks Lumbar AROM WNL - 4 weeks Treatment Plan: Modalities to reduce pain, spasms and effusion. Manual therapy to restore motion and function. Therapeutic exercise to improve strength and flexibility. Neuromuscular re-education for posture and balance. Therapeutic activities to return to functional activities of daily living. Electronically signed by: Clay Jensen PT Please sign and return to therapist. Thank you for your referral.
--- NOTE | 2024-01-27 09:34 | MHC.PT.DC ---
[facility] [place] Office [place] [facility] [place] [facility] [address] [phone] F: [phone] F: [phone] F: [phone] F: [phone] Physical Therapy Discharge Report Diagnosis: Strain of L thigh Date of Surgery: Date of Evaluation: 10/06/23 Date of Discharge: 11/08/23 Treatments to Date: 2 Cancellations to Date: No Shows to Date: Discharge Status: Independent with HEP Discharge Summary: Pt elected to stop with RTW. 10/13/23: pt progressing well. s/s almost completely resolved. we were able to progress TM walking and strength programs today without adverse reactions. we will continue 1 more visit then d/c to HEP. Patient is a 33 year old R handed male who presents with s/s consistent with strain of left thigh. 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 Patient past medical history is non-contributory. Current impairments include pain, posture, ROM, strength, activity tolerance and functional mobility. Functional limitations include decreased ability to walk, stand, jog, bend, squat and lift. Patient is motivated with good rehab potential. Skilled PT will address impairments and functional limitations in order to achieve goals. Electronically signed by: Clay Jensen, PT Please sign and return to therapist. Thank you for your referral.
== END 2024-01-27 09:34 | disposition home or self-care (01) ==
LOC: HO.PTCHIC 14:00
PROVIDERS: PCP Internal Medicine; Visit Provider Physical Medicine & Rehabilitation
DX: S76.312D Strain of muscle, fascia and tendon of the posterior muscle group at thigh level, left thigh, subsequent encounter (principal); S86.112D Strain of other muscle(s) and tendon(s) of posterior muscle group at lower leg level, left leg, subsequent encounter
CPT/HCPCS: 97110; 97161